=== PATIENT | male | born 1965 ===

== ENCOUNTER 2017-06-29 14:13 | Emergency (ER) | payer BC ==
[2017-06-29 14:15] VITALS: BMI 36.2
[2017-06-29 14:32] VITALS: TEMP 97.9
--- NOTE | 2017-06-29 14:33 | ED PDOC ---
Arrival/HPI - General Chief Complaint: Dizziness/Lightheaded Time Seen by Provider: 06/29/17 14:19 Historian: Patient - History of Present Illness Narrative History of Present Illness (Text): 06/29/17 14:50 51 year old male, who presents to the emergency department complaining of feeling lightheadedness, anxious, and mild shortness of breath at work prior to arrival. Patient reports he had uncontrollable shaking. He said while having the experience he was hearing people speak to him and did not pass out. While attempting to put the IV line, patient became anxious and began to say "No blood , I hate needles", along with hyperventilating, shaking, and resisting placing IV line. Once the attempt was stopped, the patient slowly woke up, began to breath slower, and gave the HPI. He currently agrees to Ativan PO and denies any pain. Time/Duration: Prior to Arrival Symptom Onset: Sudden Symptom Course: Unchanged Activities at Onset: Light Context: Work Past Medical History - Provider Review Nursing Documentation Reviewed: Yes - Infectious Disease Hx of Infectious Diseases: None - Tetanus Immunization Tetanus Immunization: Unknown - Cardiac Hx Cardiac Disorders: No - Pulmonary Hx Respiratory Disorders: No - Neurological Hx Neurological Disorder: No - Hematological/Oncological Hx Blood Disorders: No - Integumentary Hx Dermatological Disorder: No - Musculoskeletal/Rheumatological Hx Musculoskeletal Disorders: No - Gastrointestinal Hx Gastrointestinal Disorders: No - Genitourinary/Gynecological Hx Genitourinary Disorders: No - Psychiatric Hx Depression: No Hx Emotional Abuse: No Hx Physical Abuse: No Hx Substance Use: No - Past Surgical History Past Surgical History: No Previous - Anesthesia Hx Anesthesia: No - Suicidal Assessment Feels Threatened In Home Enviroment: No Family/Social History - Physician Review Nursing Documentation Reviewed: Yes Family/Social History: Unknown Family HX Smoking Status: Current Some Days Smoker Hx Alcohol Use: Yes Hx Substance Use: No Hx Substance Use Treatment: Yes Allergies/Home Meds Allergies/Adverse Reactions: Allergies No Known Allergies Allergy (Verified 06/29/17 14:26) Review of Systems - Review of Systems Constitutional: Other (tremors). absent: Fevers Respiratory: SOB (mild ) Cardiovascular: absent: Chest Pain Gastrointestinal: absent: Abdominal Pain Genitourinary Male: absent: Dysuria Musculoskeletal: absent: Back Pain Skin: absent: Rash Neurological: Dizziness (lightheadedness). absent: Headache Endocrine: absent: Diaphoresis Psychiatric: Anxiety Physical Exam Vital Signs Reviewed: Yes Vital Signs Temp Pulse Resp BP Pulse Ox 06/29/17 17:08 72 16 120/71 99 06/29/17 15:45 72 18 118/70 97 06/29/17 14:32 97.9 F 82 20 100/45 L 99 Temperature: Afebrile Blood Pressure: Hypotensive Pulse: Regular Respiratory Rate: Normal Appearance: Positive for: Well-Appearing, Non-Toxic, Comfortable Pain Distress: None Mental Status: Positive for: Alert and Oriented X 3 - Systems Exam Head: Present: Atraumatic, Normocephalic Pupils: Present: PERRL Extroacular Muscles: Present: EOMI Conjunctiva: Present: Normal Mouth: Present: Moist Mucous Membranes Respiratory/Chest: Present: Clear to Auscultation, Good Air Exchange. No: Respiratory Distress, Accessory Muscle Use, Wheezes, Rales, Retracting, Rhonchi Cardiovascular: Present: Regular Rate and Rhythm, Normal S1, S2. No: Murmurs Abdomen: No: Tenderness, Distention, Peritoneal Signs, Rebound, Guarding Neurological: Present: GCS=15, CN II-XII Intact, Speech Normal, Motor Func Grossly Intact, Normal Sensory Function Skin: Present: Warm, Dry, Normal Color. No: Rashes Psychiatric: Present: Alert, Oriented x 3, Normal Insight, Normal Concentration , Anxious (anxious and tremulous ) Medical Decision Making ED Course and Treatment: 06/29/17 Impression: 51 year old male who appears anxious with tremors complaining of lightheadedness and mild shortness of breath. Differential Diagnosis included but are not limited to: anxiety vs. electrolyte abnormality Plan: -- EKG -- Labs -- Ativan -- Reassess and disposition Progress Notes: EKG: Ordered, reviewed, and independently interpreted the EKG. Rate : 85 BPM Rhythm : NSR Interpretation : No ST-segment elevations or depressions, no T-wave inversions, normal intervals. Comparison : No previous EKG for comparison. 06/29/17 Patient agrees with Ativan PO. 06/29/17 17:19 When his arrived he became less anxious. Patient then agreed to blood work once his arrived. He said he was feeling better. Blood work was sent and all blood was normal. Prior to discharge, patient still felt very calm and not anxious. He states he does not want to see a psychiatrist and wants to go home and f/u with psychiatry as an outpatient instead. He denies suicidal ideation or homicidal ideation. His feels comfortable taking him home and will make sure he follows up with his doctor and psychiatry. He was advised to return to the ED if symptoms worsen or any other concerns. He was given Ativan PRN and advised to take 0.5 mg PO as needed. - Lab Interpretations Lab Results: 06/29/17 15:44 06/29/17 15:44 Lab Results 06/29/17 15:44: Sodium 142, Potassium 3.9, Chloride 106, Carbon Dioxide 23, Anion Gap 17, BUN 19, Creatinine 0.9, Est GFR ( Amer) > 60, Est GFR (Non- Af Amer) > 60, Random Glucose 104, Calcium 10.0, Magnesium 2.0 06/29/17 15:44: WBC 11.5 H D, RBC 4.75, Hgb 14.5, Hct 41.2 L, MCV 86.7, MCH 30.5 , MCHC 35.2, RDW 13.4, Plt Count 351, MPV 8.3, Gran % 75.3 H, Lymph % (Auto) 14.8 L, [place] % (Auto) 8.9 H, Eos % (Auto) 0.7 L, Baso % (Auto) 0.3, Gran # 8.61 H, Lymph # (Auto) 1.7, [place] # (Auto) 1.0 H, Eos # (Auto) 0.1, Baso # (Auto) 0.04 I have reviewed the lab results: Yes - RAD Interpretation Radiology Orders: 06/29/17 15:01 CXR [CHEST PORTABLE] [RAD] Stat - EKG Interpretation Interpreted by ED Physician: Yes Type: 12 lead EKG - Medication Orders Current Medication Orders: Discontinued Medications Lorazepam (Ativan) 2 mg PO ONCE ONE PRN Reason: Protocol Stop: 06/29/17 14:50 Last Admin: 06/29/17 14:55 Dose: 2 mg - Scribe Statement The provider has reviewed the documentation as recorded by the Randolph Espinal Provider Scribe Attestation: All medical record entries made by the Jeanibdre were at my direction and personally dictated by me. I have reviewed the chart and agree that the record accurately reflects my personal performance of the history, physical exam, medical decision making, and the department course for this patient. I have also personally directed, reviewed, and agree with the discharge instructions and disposition. Disposition/Present on Arrival - Present on Arrival Any Indicators Present on Arrival: No History of DVT/PE: No History of Uncontrolled Diabetes: No Urinary Catheter: No History of Decub. Ulcer: No History Surgical Site Infection Following: None - Disposition Have Diagnosis and Disposition been Completed?: Yes Diagnosis: Anxiety, Lightheaded Disposition: HOME/ ROUTINE Disposition Time: 17:23 Patient Plan: Discharge Patient Problems: Current Active Problems Problem Status Onset Anxiety Acute Lightheaded Acute Condition: IMPROVED Discharge Instructions (ExitCare): Syncope (Fainting), Anxiety, Adult (DC) Additional Instructions: Mr Ruiz, thank you for letting us take care of you today. Your provider was Dr. Long. You were treated for Anxiety, Lightheadedness. The emergency medical care you received today was directed at your acute symptoms. If you were prescribed any medication, please fill it and take as directed. It may take several days for your symptoms to resolve. Return to the Emergency Department if your symptoms worsen, do not improve, or if you have any other problems. Please contact your doctor or call one of the physicians/clinics you have been referred to that are listed on the Patient Visit Information form that is included in your discharge packet. Bring any paperwork you were given at discharge with you along with any medications you are taking to your follow up visit. Our treatment cannot replace ongoing medical care by a primary care provider (PCP) outside of the emergency department. Thank you for allowing the [facility] team to be part of your care today. If you had an X-Ray or CT scan: A Radiologist will review the ED reading if any change in treatment is needed we will contact you. If you had a blood, urine, or wound culture: It will take several days for the results, if any change in treatment is needed we will contact you. If you had an STI test: It will take 48 hours for the results. Please call after 1 week if you have not heard back. Prescriptions: LORazepam [Ativan] 0.5 mg PO BID PRN #5 tab PRN Reason: Anxiety Referrals: [facility] [[facility]] - Follow up with primary PCP,NO [Primary Care Provider] - Follow up with primary Forms: [employer] (Romanian), WORK NOTE
[2017-06-29 15:56] LABS: BASO # 0.04 K/mm3 (0.0-2.0); BASO % 0.3 % (0.0-3.0); EOS # 0.1 (0.0-0.7); EOS % 0.7 % (1.5-5.0); GRAN # 8.61 (1.4-6.5); GRAN % 75.3 % (50.0-68.0); HEMOGLOBIN 14.5 g/dL (14.0-18.0); LYMPH # 1.7 (1.2-3.4); LYMPH % 14.8 % (22.0-35.0); MEAN CELL VOLUME 86.7 fl (80.0-105.0); MEAN CORPUSCULAR HEMOGLOBIN 30.5 pg (25.0-35.0); MEAN CORPUSCULAR HGB CONC 35.2 g/dl (31.0-37.0); MEAN PLATELET VOLUME 8.3 fl (7.0-11.0); MONO % 8.9 % (1.0-6.0); RBC 4.75 10^6/uL (3.5-6.1); RED CELL DISTRIBUTION WIDTH 13.4 % (11.5-14.5); WHITE BLOOD COUNT 11.5 10^3/ul (4.5-11.0)
[2017-06-29 16:28] VITALS: PULSE 72
[2017-06-29 16:33] LABS: BLOOD UREA NITROGEN 19 mg/dL (7-21); GFR AFRICAN-AMERICAN > 60; GFR NON-AFRICAN AMERICAN > 60
--- NOTE | 2017-06-29 16:52 | RAD ---
HISTORY: Shortness breath COMPARISON: 09/15/2013. FINDINGS: LUNGS: No active pulmonary disease. PLEURA: No significant pleural effusion identified, no pneumothorax apparent. CARDIOVASCULAR: No radiographic findings to suggest acute or significant cardiovascular disease. OSSEOUS STRUCTURES: No significant abnormalities. VISUALIZED UPPER ABDOMEN: Normal. OTHER FINDINGS: None. IMPRESSION: No active disease. No significant interval change compared to the prior examination(s).
[2017-06-29 17:09] VITALS: BP 120/71; RESP 16; O2SAT 99
--- NOTE | 2017-06-30 16:27 | CARD ---
APPROVED REPORT EKG Measurement Heart [id number] <Conclusion> Normal sinus rhythm Normal ECG
== END 2017-06-29 17:19 | disposition home or self-care (01) ==
LOC: ED 14:13
DX: R42 Dizziness and giddiness (principal); F41.9 Anxiety disorder, unspecified

== ENCOUNTER 2018-07-25 12:10 | Emergency (ER) | payer BC ==
[2018-07-25 12:11] VITALS: BMI 36.2
[2018-07-25 12:25] VITALS: TEMP 98
--- NOTE | 2018-07-25 14:08 | RAD ---
Date of service: 07/25/2018 HISTORY: r/o infiltrate COMPARISON: 06/29/2017. FINDINGS: LUNGS: The lungs are well inflated and clear. PLEURA: No pleural effusions or pneumothorax. CARDIOVASCULAR: The heart is normal in size. No aortic atherosclerotic calcifications present. OSSEOUS STRUCTURES: Within normal limits for the patient's age. VISUALIZED UPPER ABDOMEN: Normal. OTHER FINDINGS: None. IMPRESSION: No active pulmonary disease.
[2018-07-25 15:02] LABS: BASO # 0.03 K/mm3 (0.0-2.0); BASO % 0.3 % (0.0-3.0); EOS # 0.3 (0.0-0.7); EOS % 2.7 % (1.5-5.0); HEMOGLOBIN 13.2 g/dL (14.0-18.0); LYMPH % 20.4 % (22.0-35.0); MEAN CELL VOLUME 89.6 fl (80.0-105.0); MEAN CORPUSCULAR HEMOGLOBIN 29.8 pg (25.0-35.0); MEAN CORPUSCULAR HGB CONC 33.2 g/dl (31.0-37.0); MEAN PLATELET VOLUME 8.5 fl (7.0-11.0); MONO # 0.7 (0.1-0.6); MONO % 7.2 % (1.0-6.0); RBC 4.43 10^6/uL (3.5-6.1); RED CELL DISTRIBUTION WIDTH 13.7 % (11.5-14.5); WHITE BLOOD COUNT 9.7 10^3/uL (4.5-11.0)
[2018-07-25 15:11] LABS: ALB/GLOB RATIO 1.4 (1.1-1.8); ALBUMIN 3.6 g/dL (3.0-4.8); ALT/SGPT 18 U/L (7-56); AST/SGOT 24 U/L (17-59); BLOOD UREA NITROGEN 16 mg/dL (7-21); CALCIUM 8.8 mg/dL (8.4-10.5); GFR NON-AFRICAN AMERICAN > 60
[2018-07-25 15:21] LABS: OPIATES, UR NEGATIVE (NEGATIVE)
[2018-07-25 15:29] LABS: TROPONIN I < 0.01 ng/mL
[2018-07-25 15:46] LABS: BARBITURATES, UR NEGATIVE (NEGATIVE); BENZODIAZEPINES, UR POSITIVE (NEGATIVE); PHENCYCLIDINE, UR NEGATIVE (NEGATIVE)
[2018-07-25 16:28] VITALS: BP 115/78; PULSE 59; RESP 17; O2SAT 100
--- NOTE | 2018-07-25 18:15 | ED PDOC ---
Arrival/HPI - General Chief Complaint: Dizziness/Lightheaded Historian: Patient - History of Present Illness Narrative History of Present Illness (Text): 07/25/18 18:16 52 year old M with pmh of bulging disc on neck presents complaining of mild dizziness for a couple of days. Patient also complains of left arm pain. Patient recalls recently having injections for bulging disc in his lumbar region. Patient denies any fevers, chills, headache, chest pain, shortness of breath, dyspnea on exertion, cough, diaphoresis, abdominal pain, nausea, vomiting, diarrhea, back pain, neck pain, or any other complaint. Time/Duration: < week Symptom Onset: Sudden Symptom Course: Unchanged Activities at Onset: Light Context: Home Past Medical History - Provider Review Nursing Documentation Reviewed: Yes - Infectious Disease Hx of Infectious Diseases: None - Tetanus Immunization Tetanus Immunization: Unknown - Cardiac Hx Cardiac Disorders: Yes - Pulmonary Hx Respiratory Disorders: No - Neurological Hx Neurological Disorder: No - Hematological/Oncological Hx Blood Disorders: No - Integumentary Hx Dermatological Disorder: No - Musculoskeletal/Rheumatological Hx Musculoskeletal Disorders: No Hx Back Pain: Yes Hx Herniated Disk: Yes Other/Comment: cervical disk heniation - Gastrointestinal Hx Gastrointestinal Disorders: No - Genitourinary/Gynecological Hx Genitourinary Disorders: No - Psychiatric Hx Depression: No Hx Emotional Abuse: No Hx Physical Abuse: No Hx Substance Use: No - Past Surgical History Past Surgical History: No Previous - Anesthesia Hx Anesthesia: No - Suicidal Assessment Feels Threatened In Home Enviroment: No Family/Social History - Physician Review Nursing Documentation Reviewed: Yes Family/Social History: Unknown Family HX Smoking Status: Current Some Days Smoker Hx Alcohol Use: Yes Hx Substance Use: No Hx Substance Use Treatment: Yes Allergies/Home Meds Allergies/Adverse Reactions: Allergies No Known Allergies Allergy (Verified 06/29/17 14:26) Review of Systems - Physician Review All systems were reviewed & negative as marked: Yes - Review of Systems Constitutional: absent: Fevers ENT: absent: Rhinorrhea, Epistaxis Respiratory: absent: SOB, Cough, Wheezing Cardiovascular: absent: Chest Pain, Palpitations, FUENTES, Syncope Gastrointestinal: absent: Abdominal Pain, Constipation, Diarrhea, Nausea, Vomiting, Hematochezia, Hematemesis Genitourinary Male: absent: Dysuria, Hematuria Musculoskeletal: Arthralgias (left arm) Skin: absent: Rash, Laceration, Cellulitis Neurological: Dizziness. absent: Headache Physical Exam Vital Signs Reviewed: Yes Vital Signs Temp Pulse Resp BP Pulse Ox 07/25/18 16:15 59 L 17 115/78 100 07/25/18 14:53 46 L 18 108/71 99 07/25/18 12:19 98 F 58 L 18 119/78 99 Temperature: Afebrile Blood Pressure: Normal Pulse: Bradycardic Respiratory Rate: Normal Appearance: Positive for: Well-Appearing, Non-Toxic, Comfortable Pain Distress: Mild Mental Status: Positive for: Alert and Oriented X 3 - Systems Exam Head: Present: Atraumatic, Normocephalic Pupils: Present: PERRL Extroacular Muscles: Present: EOMI Conjunctiva: Present: Normal Mouth: Present: Moist Mucous Membranes Neck: Present: Normal Range of Motion Respiratory/Chest: Present: Clear to Auscultation, Good Air Exchange. No: Respiratory Distress, Accessory Muscle Use Cardiovascular: Present: Normal S1, S2, Bradycardic. No: Murmurs Abdomen: No: Tenderness, Distention, Peritoneal Signs Back: Present: Normal Inspection Upper Extremity: Present: Normal Inspection. No: Cyanosis, Edema Lower Extremity: Present: Normal Inspection. No: Edema Neurological: Present: GCS=15, CN II-XII Intact, Speech Normal Skin: Present: Warm, Dry, Normal Color. No: Rashes Psychiatric: Present: Alert, Oriented x 3, Normal Insight, Normal Concentration Medical Decision Making ED Course and Treatment: 07/25/18 18:15 Impression: 52 year old M presents complaining of mild dizziness for a couple of days. Patient also complains of left arm pain. Patient recalls recently having injections for bulging disc in his lumbar region. Plan: -- Antivert -- Toradol -- EKG -- Reassess and disposition Prior Visits: Notes and results from previous visits were reviewed. Progress Notes: EKG shows Bradia cardia at 54 BPM with normal QRS, normal axis, normal intervals, no acute ST/T wave abnormalities After re-evaluation, patient feels better. Will discharge. - Lab Interpretations Lab Results: Troponin I < 0.01 ng/mL 07/25/18 14:50 Total Bilirubin 0.2 mg/dL (0.2-1.3) 07/25/18 14:50 AST 24 U/L (17-59) 07/25/18 14:50 ALT 18 U/L (7-56) 07/25/18 14:50 Alkaline Phosphatase 55 U/L (38-126) 07/25/18 14:50 Total Protein 6.2 g/dL (5.8-8.3) 07/25/18 14:50 Albumin 3.6 g/dL (3.0-4.8) 07/25/18 14:50 Globulin 2.6 gm/dL 07/25/18 14:50 Albumin/Globulin Ratio 1.4 (1.1-1.8) 07/25/18 14:50 - RAD Interpretation Radiology Orders: 07/25/18 13:48 CHEST PORTABLE [RAD] Stat - Medication Orders Current Medication Orders: Discontinued Medications Ketorolac Tromethamine (Toradol) 30 mg IVP STAT STA Stop: 07/25/18 14:30 Last Admin: 07/25/18 14:55 Dose: 30 mg [facility] Pain Assessment Document 07/25/18 14:55 CD (Rec: 07/25/18 14:55 CD [place] [id number]) Pain Reassessment Is this a pain reassessment? No Sleep Is patient sleeping during reassessment? No Presence of Pain Presence of Pain Yes IVP Administration Document 07/25/18 14:55 CD (Rec: 07/25/18 14:55 CD [facility]-) Charges for Administration # of IVP Administrations 1 Meclizine HCl (Antivert) 25 mg PO STAT STA Stop: 07/25/18 14:30 Last Admin: 07/25/18 14:55 Dose: 25 mg - Scribe Statement The provider has reviewed the documentation as recorded by the Randolph Ghotra All medical record entries made by the Randolph were at my direction and personally dictated by me. I have reviewed the chart and agree that the record accurately reflects my personal performance of the history, physical exam, medical decision making, and the department course for this patient. I have also personally directed, reviewed, and agree with the discharge instructions and disposition. Disposition/Present on Arrival - Present on Arrival Any Indicators Present on Arrival: No History of DVT/PE: No History of Uncontrolled Diabetes: No Urinary Catheter: No History of Decub. Ulcer: No History Surgical Site Infection Following: None - Disposition Have Diagnosis and Disposition been Completed?: Yes Diagnosis: Vertigo Disposition: HOME/ ROUTINE Disposition Time: 15:30 Condition: IMPROVED Discharge Instructions (ExitCare): Vertigo (a Type of Dizziness) (DC) Additional Instructions: REDDY GRULLON, thank you for letting us take care of you today. The emergency medical care you received today was directed at your acute symptoms. If you were prescribed any medication, please fill it and take as directed. It may take several days for your symptoms to resolve. Return to the Emergency Department if your symptoms worsen, do not improve, or if you have any other problems. Please contact your doctor or call one of the physicians/clinics you have been referred to that are listed on the Patient Visit Information form that is included in your discharge packet. Bring any paperwork you were given at discharge with you along with any medications you are taking to your follow up visit. Our treatment cannot replace ongoing medical care by a primary care provider outside of the emergency department. Thank you for allowing the [facility] team to be part of your care today. Follow up with your primary care doctor in 2-3 days for re-evaluation and further management. Prescriptions: Meclizine [Meclizine*] 25 mg PO Q6 PRN #20 tab PRN Reason: Dizziness Referrals: Tomasa Jackson NS [Primary Care Provider] - Follow up with primary Forms: [employer] (Ecuadorean)
--- NOTE | 2018-07-25 21:00 | CARD ---
APPROVED REPORT Date of service: 07/25/2018 EKG Measurement Heart [id number] <Conclusion> Sinus bradycardia Intraventricular conduction delay of RBBB isabela Otherwise normal ECG
== END 2018-07-25 16:15 | disposition home or self-care (01) ==
LOC: ED 12:10
DX: R42 Dizziness and giddiness (principal)
CPT/HCPCS: 71045; 80053; 82550; 83615; 83735; 84484; 85025; 93005; 96374; 99284; G0480; J1885